=== PATIENT | female | born 1965 | race Caucasian/White ===

== ENCOUNTER 2020-04-29 06:59 | Emergency (ER) | payer OTHER ==
[~2020-04-29] VITALS: Ht 162.6 cm; Wt 84.4 kg
[2020-04-29 07:06] VITALS: BP 147/75
--- NOTE | 2020-04-29 07:09 | NUR ---
PT AMBULATED TO ER BED 04
[2020-04-29] MEDS ORDERED: BUPIVACAINE-MPF/EPI 0.25% 30 ML VIAL INJ ONE (07:15)
[2020-04-29] MEDS ORDERED: LIDOCAINE/EPI 1% 1:100000 20 ML VIAL INJ ONE (07:15)
--- NOTE | 2020-04-29 07:45 | NUR ---
54 YEAR OLD FEMALE COMPLAINS OF RIGHT MOLAR TOOTH PAIN AFTER CRACKING TOOTH WHILE EATING EARLIER IN DAY. PT STATES THAT SHE DID NOT SWALLOW TOOTH PIECE, SPIT IT OUT. NO ACTIVE BLEEDING. PT AOX4, BREATHING EVEN AND UNLABORED, SKIN WARM AND DRY. BED IN LOWEST POSITION, LOCKED, BED RAIL UPX.1 PMH- DENIES ALLERGIES - NKA
--- NOTE | 2020-04-29 08:04 | NUR ---
sensorcaine medication not used by ermd wasted.
[2020-04-29 08:05] VITALS: BP 121/75
--- NOTE | 2020-04-29 08:05 | NUR ---
Patient discharged with v/s stable. Written and verbal after care instructions given and explained. Patient alert, oriented and verbalized understanding of instructions. Ambulatory with steady gait. All questions addressed prior to discharge. ID band removed. Patient advised to follow up with PMD. Rx of ibuprofen, norco, and augmentin given. Patient educated on indication of medication including possible reaction and side effects. Opportunity to ask questions provided and answered. Pt understands not to drive or operate heavy machinery with norco medication use.
== END 2020-04-29 08:05 | disposition home or self-care (01) ==
LOC: MED 06:59
DX: K08.539 Fractured dental restorative material, unspecified (principal); I10 Essential (primary) hypertension
CPT/HCPCS: 64450; 99284; J2001; J3490